=== PATIENT | male | born 1960 | race Caucasian/White ===

== ENCOUNTER 2019-09-02 13:38 | Emergency (ER) | payer MEDICARE ==
[~2019-09-02] VITALS: Ht 182.8 cm; Wt 111.6 kg
[2019-09-02 14:23] LABS: MEAN CELL VOLUME 64.8 fl (80.0-94.0); MEAN CORPUSCULAR HGB 20.5 pg (27.0-31.0); MEAN CORPUSCULAR HGB CONC 31.7 g/dl (33.0-37.0); MEAN PLATELET VOLUME 10.4 fl (9.6-12.3); PLATELET COUNT AUTOMATED 136 10*3/uL (130-400); RED BLOOD COUNT 6.33 10*6/uL (4.50-5.90); WHITE BLOOD COUNT 19.7 10*3/uL (4.8-10.8)
[2019-09-02 14:43] LABS: INTERNATIONAL NORM RATIO 0.9 (2.0-3.5)
[2019-09-02 14:48] LABS: ALBUMIN 3.2 gm/dl (3.1-4.5); CREATININE 1.69 mg/dL (0.70-1.30); POTASSIUM 4.1 mmol/L (3.5-5.1); TOTAL PROTEIN 7.3 gm/dL (6.4-8.2)
[2019-09-02 15:03] LABS: TOTAL CELLS COUNTED 100 #CELLS
[2019-09-02 15:04] LABS: PLATELET SUFFICIENCY NORMAL (NORMAL)
[2019-09-02] MEDS ORDERED: CEPHALEXIN500 M1 PO ×2 (15:56→16:10)
== END 2019-09-02 16:11 | disposition left against medical advice (07) ==
LOC: ED 13:38
PROVIDERS: Nurse Practitioner Family
DX: L03.113 Cellulitis of right upper limb (principal); R00.0 Tachycardia, unspecified